=== PATIENT | female | born 1965 | race Caucasian/White ===

== ENCOUNTER → 2016-12-23 | Outpatient (CLI) | payer OTHER | LOC: RAD 09:59 | PROVIDERS: ATTEND Specialist | DX: M54.12 Radiculopathy, cervical region (principal) | CPT/HCPCS: 72040 ==

== ENCOUNTER → 2017-01-31 | Outpatient (CLI) | payer OTHER | LOC: RAD 09:58 | PROVIDERS: ATTEND Specialist | DX: M54.2 Cervicalgia (principal); M54.9 Dorsalgia, unspecified | CPT/HCPCS: 72040; 72100; 72120 ==

== ENCOUNTER → 2017-02-18 | Outpatient (CLI) | payer OTHER | LOC: RAD 10:28 | PROVIDERS: ATTEND Specialist | DX: M54.12 Radiculopathy, cervical region (principal) | CPT/HCPCS: 72125 ==

== ENCOUNTER → 2017-03-14 | Outpatient (CLI) | payer OTHER | LOC: RAD 06:59 | PROVIDERS: ATTEND Specialist | DX: M54.16 Radiculopathy, lumbar region (principal); M79.604 Pain in right leg; M79.605 Pain in left leg | CPT/HCPCS: 82565; 72158; A9577 ==

== ENCOUNTER → 2017-03-27 | Outpatient (CLI) | payer OTHER ==
--- NOTE | 2017-03-27 11:56 | WOMENS IMAGING REPORT ---
EXAM DESCRIPTION: U/S BREAST UNILAT LIMITED COMPLETED DATE/TIME: 03/27/2017 10:42 am REASON FOR STUDY: LEFT AXILLA LUMP Z12.31 ENCNTR SCREEN MAMMOGRAM FOR MALIGNANT NEOPLASM OF IVANIA COMPARISON: Breast implant ultrasound 08/31/2009 Bilateral mammograms 10/11/2013 TECHNIQUE: Real-time and static grayscale imaging performed of the left breast targeted to the area of clinical concern. Selected color Doppler images recorded. LIMITATIONS: None. FINDINGS: Patient is post bilateral mastectomy in 2003 with bilateral breast implant revision in 22 06. Patient notices a palpable abnormality along the left breast implant. Ultrasound of the entire left post mastectomy and implant breast was performed with comparison imaging on the right. Along the left implant superficial aspect, there is a small fluid pocket between the implant and skin measuring 3 by 0.7 cm in size in the central "retroareolar" region. On today's study, the implant ap pears to be intact without linguini sign. Review of prior ultrasound demonstrated a trace amount of fluid between the implant and skin in 2008, smaller than on today's exam. Comparison imaging of the right breast implant demonstrates a trace amount of fluid between the impla nt and skin, unchanged from 2009. IMPRESSION: Small amount of tissue fluid accumulating between the breast implant and skin left great er than right. If there is clinical concern for implant rupture, consider MRI to assess the integrit y of the breast implants. BIRAD: 2 Benign findings. RECOMMENDATION: RECOMMENDED FOLLOW-UP: If there is clinical suspicion of implant leakage or rupture, consider MRI bilateral breasts for followup COMMENT: The [employer] (ACR) has developed recommendations for screening MRI of the breasts in certain patient populations, to be used in conjunction with mammography. Breast MRI s urveillance may be appropriate for women with more than 20% lifetime risk of developing breast cancer as determined by genetic testing, significant family history of the disease, or history of mantle r adiation for Hodgkins Disease. ACR Practice Guidelines 2008. TECHNICAL DOCUMENTATION: JOB ID: [id number] [employer]- All Rights Reserved
== END ==
LOC: RAD 08:15
PROVIDERS: ATTEND Nurse Practitioner Family
DX: N63 Unspecified lump in breast (principal)
CPT/HCPCS: 76642

== ENCOUNTER → 2017-08-25 | Outpatient (CLI) | payer OTHER ==
--- NOTE | 2017-08-25 09:13 | WOMENS IMAGING REPORT ---
EXAM DESCRIPTION: BONE DENSITY HIP/SPINE COMPLETED DATE/TIME: 08/25/2017 8:37 am REASON FOR STUDY: OTHER SPECIFIED DISORDERS; M85.80 M85.80 OTH DISRD OF BONE DENSITY AND STRUCTURE, UNSPECIFIED COMPARISON: 2011, 2014 TECHNIQUE: Dual-Energy X-ray Absorptiometry (DEXA) of the AP Spine and Hip. LIMITATIONS: None. FINDINGS: LUMBAR SPINE: The bone mineral density (BMD) measured from L1-L4 in the AP projection correlates with a T-score of -2.4, which is borderline osteoporotic as defined by the World Health Organization. This represents a 12% decrease in bone density compared to 2011 and 2014. HIP: The bone mineral density (BMD) measured in the left total hip correlates with a T-score of -0.9, whic h is borderline osteopenic as defined by the World Health Organization. This represents a 4% decreas e in bone density compared to 2014 IMPRESSION: 1. LUMBAR SPINE: Borderline osteoporotic 2. HIP: Borderline osteopenic COMMENT: The World Health Organization defines low BMD as follows: T-score: Normal: Greater than -1.0 Osteopenia: Between -1.0 and -2.5 Osteoporosis: Less than -2.5 without fractures Established osteoporosis: Less than -2.5 with fractures In general, you may wish to consider: Diagnosis Treatment Follow-up DEXA Normal BMD Prevention 2-3 years Osteopenia Prevention/Therapy 1-2 years Osteoporosis Therapy Yearly TECHNICAL DOCUMENTATION: JOB ID: [id number]- All Rights Reserved
== END ==
LOC: WI 08:17
PROVIDERS: ATTEND Physician Assistant
DX: M85.80 Other specified disorders of bone density and structure, unspecified site (principal)
CPT/HCPCS: 77080

== ENCOUNTER → 2017-08-26 | Outpatient (CLI) | payer OTHER ==
--- NOTE | 2017-08-26 13:27 | RADIOLOGY REPORT (SQ) ---
EXAM DESCRIPTION: MRI RT LOWER JOINT WITHOUT COMPLETED DATE/TIME: 08/26/2017 10:09 am REASON FOR STUDY: R KNEE PAIN M25.551 PAIN IN RIGHT HIP COMPARISON: None. TECHNIQUE: Rightknee images acquired and stored on PACS. Multiplanar images include fat sensitive s equences as T1, water sensitive sequences as FST2 or STIR, cartilage sensitive sequences as FSPD, and gradient echo sequences. LIMITATIONS: None. FINDINGS: JOINT AND BURSAE: No effusion. BONE CORTEX AND MARROW: No alteration of signal to suggest marrow replacement. No worrisome bone lesi ons. No occult fracture. ACL: Intact. No degeneration or ganglion cyst. PCL: Intact. MCL: Intact. No periligamentous edema or fluid. LCL: Intact. No periligamentous edema or fluid. MEDIAL MENISCUS: No tears. No abnormal signal. LATERAL MENISCUS: No tears. No abnormal signal. MEDIAL COMPARTMENT: Cartilage preserved. No bone bruises or reactive marrow edema. No osteophytes. LATERAL COMPARTMENT: Cartilage preserved. No bone bruises or reactive marrow edema. No osteophytes. PATELLA: Mild focal chondromalacia, medial patellar facet axial image 8. No subchondral cysts. Medial and lateral retinacula intact. EXTENSOR MECHANISM: Intact. Quadriceps and patella tendons normal. SOFT TISSUES: Adjacent muscles and subcutaneous tissues normal. Normal flow void in popliteal artery and vein. OTHER: No other significant finding. IMPRESSION: ESSENTIALLY NORMAL MRI OF THE KNEE. TECHNICAL DOCUMENTATION: JOB ID: [id number] [employer]- All Rights Reserved
== END ==
LOC: RAD 08:26
PROVIDERS: ATTEND Orthopaedic Surgery
DX: M25.551 Pain in right hip (principal)

== ENCOUNTER → 2018-12-26 | Outpatient (CLI) | payer OTHER ==
--- NOTE | 2018-12-26 12:04 | RADIOLOGY REPORT (SQ) ---
EXAM DESCRIPTION: CERV SP 3 VIEW OR LESS COMPLETED DATE/TIME: 12/26/2018 10:02 am REASON FOR STUDY: CHRONIC NECK PAIN M54.2 CERVICALGIA COMPARISON: 01/31/2017 NUMBER OF VIEWS: Three views. TECHNIQUE: AP, lateral and odontoid radiographic images acquired of the cervical spine. LIMITATIONS: None. FINDINGS: Status post ACD C4- 5, C5-6, C6-7 and interlaminar fusion C7-T1, T1- 2. Alignment is unch anged. Instrumentation intact. Prevertebral soft tissues are normal. IMPRESSION: Postsurgical changes. No significant change. TECHNICAL DOCUMENTATION: JOB ID: [id number] [employer]- All Rights Reserved Reading location - IP/workstation name: [facility]
== END ==
LOC: RAD 09:12
PROVIDERS: ATTEND Physician Assistant
DX: M54.2 Cervicalgia (principal)
CPT/HCPCS: 72040

== ENCOUNTER → 2018-12-30 | Outpatient (CLI) | payer OTHER ==
--- NOTE | 2018-12-30 08:37 | RADIOLOGY REPORT (SQ) ---
EXAM DESCRIPTION: CT CERVICAL SPINE WITHOUT COMPLETED DATE/TIME: 12/30/2018 8:11 am REASON FOR STUDY: CERVICALGIA M54.2 CERVICALGIA COMPARISON: 02/18/2017 TECHNIQUE: Axial images acquired through the cervical spine without intravenous contrast. Images re viewed with lung, soft tissue and bone windows. Reconstructed coronal and sagittal MPR images review ed. Images stored on PACS. All CT scanners at this facility use dose modulation, iterative reconstruction, and/or weight based d osing when appropriate to reduce radiation dose to as low as reasonably achievable (ALARA). [facility]: Dose Right [facility]: CareDose [facility]: Dose Right [facility]: Teradose 4D [facility]: SugarSync RADIATION DOSE: CT Rad equipment meets quality standard of care and radiation dose reduction techniq ues were employed. CTDIvol: 14.6 mGy. DLP: 331 mGy-cm. mGy. LIMITATIONS: None. FINDINGS: ALIGNMENT: Straightening of the normal cervical lordosis. MINERALIZATION: Normal. VERTEBRAL BODIES: No fractures or dislocation. DISCS: Multilevel fusion spanning from C4 to T2. Interbody spacers at C4-C7. Remaining disc spaces are unremarkable. No significant spinal canal stenosis. At C5-6 there is mild left neural foraminal narrowing from unc overtebral and facet hypertrophy, stable. At C6-7 there is mild stable bilateral neural foraminal na rrowing from uncovertebral hypertrophy. FACETS, LATERAL MASSES, POSTERIOR ELEMENTS: No evidence of fracture or facet dislocation. Facet fusi on at C7-T1 bilaterally. Mild additional facet arthropathy throughout the mid cervical spine. HARDWARE: Anterior fusion hardware with interbody spacers spanning from the C4 -C7. Posterior fusion hardware spanning from C7 -T2. No evidence of hardware failure. VISUALIZED RIBS: No fractures. LUNG APICES AND SOFT TISSUES: No significant or acute findings. OTHER: No other significant finding. IMPRESSION: No evidence of acute bony abnormality. Stable fusion hardware spanning from C4-T2 without evidence of complication. No high-grade osseous s noelle canal stenosis or neural foraminal narrowing. TECHNICAL DOCUMENTATION: JOB ID: [id number] Quality ID # [id number]: Final reports with documentation of one or more dose reduction techniques (e.g., Au tomated exposure control, adjustment of the mA and/or kV according to patient size, use of iterative reconstruction technique) 2010 [employer]- All Rights Reserved Reading location - IP/workstation name: [facility]-
== END ==
LOC: RAD 08:01
PROVIDERS: ATTEND Physician Assistant
DX: M54.2 Cervicalgia (principal)
CPT/HCPCS: 72125

== ENCOUNTER → 2019-02-09 | Outpatient (CLI) | payer OTHER ==
--- NOTE | 2019-02-09 14:08 | WOMENS IMAGING REPORT ---
EXAM DESCRIPTION: BILAT SCREENING MAMMO W/CAD COMPLETED DATE/TIME: 02/09/2019 9:34 am REASON FOR STUDY: Z12.31 ROUTINE BILATERAL SCREENING Z12.31 ENCNTR SCREEN MAMMOGRAM FOR MALIGNANT N EOPLASM OF IVANIA COMPARISON: 2011, 2012 TECHNIQUE: Standard craniocaudal and mediolateral oblique views of each breast recorded using [employer] l acquisition. LIMITATIONS: None. FINDINGS: IMPLANTS: Patient is post bilateral skin sparing mastectomies with retropectoral saline im plants. Findings present which are benign by mammographic criteria. No suspicious masses, calcifications or architectural distortion. Read with the assistance of CAD. .[facility] - R2 Cenova Version 1.3 .[facility] - R2 Cenova Version 2.1 .[facility] - R2 Cenova Version 2.4 .[facility] [place] - R2 Cenova Version 2.4 .[facility] - R2 Production Sound Mixer Version 9.2 Benign mammographic findings may include one or more of the following: Smooth masses, popcorn/rim/co arse calcifications, asymmetries, post-procedure changes, and lesions with long-standing stability. IMPRESSION: BENIGN MAMMOGRAPHIC FINDINGS. BIRADS 2 BREAST DENSITY: a. The breasts are almost entirely fatty. BIRAD: 2 BENIGN FINDING(S) RECOMMENDATION: ROUTINE SCREENING COMMENT: The patient has been notified of the results by letter per [place] requirements. Additional no tification policies are in place for contacting patient with suspicious or incomplete findings. Quality ID #[id number]: The [employer] recommends an annual screening mammogram for women aged 40 years or over. This facility utilizes a reminder system to ensure that all patients receive reminder letters, and/or direct phone calls for appointments. This includes reminders for routine scr eening mammograms, diagnostic mammograms, or other Breast Imaging Interventions when appropriate. Th is patient will be placed in the appropriate reminder system. The [employer] (ACR) has developed recommendations for screening MRI of the breast s in certain patient populations, to be used in conjunction with mammography. Breast MRI surveillanc e may be appropriate for women with more than 20% lifetime risk of developing breast cancer as deter mined by genetic testing, significant family history of the disease, or history of mantle radiation f or Hodgkins Disease. ACR Practice Guidelines 2008. TECHNICAL DOCUMENTATION: FINDING NUMBER: (1) ASSESSMENT: (1) JOB ID: [id number] [employer]- All Rights Reserved Reading location - IP/workstation name: [facility]
== END ==
LOC: WI 08:37
PROVIDERS: ATTEND Physician Assistant
DX: Z12.31 Encounter for screening mammogram for malignant neoplasm of breast (principal)
CPT/HCPCS: 77067